=== PATIENT | female | born 2000 | race Caucasian/White ===

== ENCOUNTER 2023-06-20 15:33 | Emergency (ER) | payer OTHER ==
[2023-06-20 16:02] VITALS: O2SAT 100
--- NOTE | 2023-06-20 17:10 | ED Physician Documentation ---
History of Present Illness - Stated complaint Stated Complaint: CONGESTION/MENESES - Chief complaint Chief Complaint: Heent - History obtained from History obtained from: Patient - History of Present Illness Timing: Today - Additonal information Additional information: 22-year-old female with tested positive for COVID last week has been asked to come back to work today and she still has symptoms of sore throat and not feeling well and she was asked to come to the emergency department here to have another COVID test done. Review of Systems Constitutional: reports: Fever (yesterday), Myalgias, Sweats Eyes: denies: Photophobia Ears: denies: Ear pain Nose: reports: Rhinorrhea / runny nose, Congestion, Other (cant smell) Throat: reports: Sore throat Cardiac: denies: Chest pain / pressure, Palpitations Respiratory: reports: Cough. denies: Dyspnea GI: denies: Vomiting, Diarrhea : denies: Dysuria, Frequency PD PAST MEDICAL HISTORY - Past Medical History Past Medical History: No - Past Surgical History Past Surgical History: No - Present Medications Home Medications: Ambulatory Orders Medication Instructions Recorded Confirmed No Known Home Medications 06/20/23 06/20/23 - Allergies Allergies/Adverse Reactions: Allergies Allergy/AdvReac Type Severity Reaction Status Date / Time No Known Drug Allergies Allergy Verified 06/20/23 15:48 - Social History Does the pt smoke?: No Smoking Status: Never smoker Does the pt drink ETOH?: Yes Does the pt have substance abuse?: No - Immunizations Immunizations are current?: Yes PD ED PE NORMAL - Vitals Vital signs reviewed: Yes (normal ) - General General: Alert and oriented X 3, No acute distress, Well developed/nourished - HEENT HEENT: Atraumatic, PERRL, EOMI, Ears normal, Moist mucous membranes, Pharynx benign, Dentition benign - Neck Neck: Supple, no meningeal sign, No bony TTP - Cardiac Cardiac: RRR, No murmur - Respiratory Respiratory: No respiratory distress, Clear bilaterally - Abdomen Abdomen: Soft, Non tender - Back Back: No CVA TTP, No spinal TTP - Derm Derm: Normal color, Warm and dry, No rash - Extremities Extremities: No deformity, No edema - Neuro Neuro: Alert and oriented X 3, 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, No motor deficit, No sensory deficit, Normal speech Eye Opening: Spontaneous Motor: Obeys Commands Verbal: Oriented GCS Score: 15 - Psych Psych: Normal mood, Normal affect Results - Vitals Vitals: Vital Signs - 24 hr 06/20/23 06/20/23 15:44 17:17 Temperature 36.3 C L 36.8 C Heart Rate 80 73 Respiratory 16 16 Rate Blood Pressure 120/74 109/71 O2 Saturation 100 100 Oxygen O2 Source Room air - Labs Labs: Laboratory Tests 06/20/23 15:51 SARS-CoV-2 (PCR) DETECTED A PD Medical Decision Making - ED course Complexity details: considered differential, d/w patient Reviewed Lab Results: We checked a viral PCR for COVID and found it was positive. My interpretation of this is the patient continues to have COVID ED course: 22-year-old female presenting to the emergency department for confirmation of COVID. She tested positive last week she was asked to come back to work today she is still positive and still symptomatic. She is to quarantine for an additional 5 days. with option to return to work with negative test. Departure - Departure Disposition: 01 Home, Self Care Clinical Impression: COVID Condition: Stable Instructions: COVID-19 [facility] Department Statement Follow-Up: LALY GLOVER MD [Primary Care Provider] - Comments: Perla today you still test positive for COVID and the recommendation is to remain in quarantine. When your symptoms improve another test is indicated and this can be done as an outpatient. Forms: PCP List, Activity restrictions Discharge Date/Time: 06/20/23 17:22
[2023-06-20 17:27] VITALS: BP 109/71
== END 2023-06-20 17:22 | disposition home or self-care (01) ==
LOC: ED 15:33
DX: U07.1 COVID-19 (principal)
CPT/HCPCS: 87635; 99282; 99283

== ENCOUNTER 2023-12-31 08:00 | Outpatient (CLI) | payer OTHER ==
[2023-12-31 22:58] LABS: BACTERIAL VAGINOSIS DNA POSITIVE (NEGATIVE); CANDIDA GLABRATA DNA NEGATIVE (NEGATIVE); CANDIDA GROUP DNA POSITIVE (NEGATIVE); CANDIDA KRUSEI DNA NEGATIVE (NEGATIVE); TRICHOMONAS VAGINALIS DNA NEGATIVE (NEGATIVE)
== END 2023-12-31 23:59 | disposition home or self-care (01) ==
LOC: LAB.N 08:00
PROVIDERS: ATTEND Family Medicine
DX: L29.8 Other pruritus (principal)
CPT/HCPCS: 81514